=== PATIENT | female | born 1980 | race Hispanic/Latino ===

== ENCOUNTER 2021-04-25 16:21 | Emergency (ER) | payer SELFPAY ==
[2021-04-25 16:47] LABS: #Eosinphils 0.2 thou/uL (0.0-0.7); #Lymphocytes 2.6 thou/uL (1.20-3.40); #Monocytes 0.7 thou/uL (0.11-0.59); #Neutrophils 7.6 thou/uL (1.40-6.50); %Basophils 0.4 % (0.0-1.0); %Eosinophils 1.4 % (0.0-10.0); %Lymphocytes 23.4 % (21.0-51.0); %Monocytes 5.9 % (0.0-10.0); %Neutrophils 68.8 % (42.0-75.0); Hemoglobin 10.5 g/dL (12.0-16.0); Mean Corpuscular HGB CONC 33.1 g/dL (32.0-36.0); Mean Corpuscular Hemoglobin 28.3 pg (27.0-31.0); Mean Corpuscular Volume 85.6 fL (78.0-98.0); Mean Platelet Volume 6.7 fL (7.4-10.4); Platelet Count 349 thou/uL (130-400); RBC Distribution Width 13.4 % (11.5-14.5); Red Blood Cell (RBC) Count 3.72 mill/uL (4.20-5.40)
[2021-04-25 16:54] LABS: BHCG - Serum Negative (NEGATIVE)
[2021-04-25 16:55] LABS: Pregs Control Background? CLEAR/WHITE (CLR/WHITE); Pregs Control Bar Appear? YES (CONTROL BAR)
[2021-04-25 17:08] LABS: ALT (SGPT) 17 U/L (8-55); AST (SGOT) 13 U/L (5-34); Albumin 3.8 g/dL (3.5-5.0); Alkaline Phosphatase 78 U/L (40-110); Anion Gap 12 mmol/L (10-20); BUN (Urea Nitrogen) 15 mg/dL (7.0-18.7); Bilirubin, Total Less than 0.2 mg/dL (0.2-1.2); Calc. Creatinine Clearance 0 mL/min (70-130); Calcium 9.7 mg/dL (7.8-10.44); Carbon Dioxide 25 mmol/L (22-29); Chloride 104 mmol/L (98-107); Globulin 3.5 g/dL (2.4-3.5); Glucose 123 mg/dL (70-105); Lipase 30 U/L (8-78); Potassium 3.7 mmol/L (3.5-5.1); Protein, Total 7.3 g/dL (6.0-8.3); Sodium 137 mmol/L (136-145)
[2021-04-25] MEDS ORDERED: Ondansetron PF 4 MG/2 ML Vial ONE (17:49)
[2021-04-25] MEDS ORDERED: Ketorolac Tromethamine 30 MG/ML VIAL ONE (18:07)
== END 2021-04-25 20:12 | disposition home or self-care (01) ==
LOC: ERS 16:21
DX: R07.89 Other chest pain (principal); D64.9 Anemia, unspecified; Z79.899 Other long term (current) drug therapy
CPT/HCPCS: 36415; 71045; 80053; 83690; 84484; 84703; 85025; 93005; 96374; 96375; J1885; J2405

== ENCOUNTER 2023-04-02 09:47 | Outpatient (CLI) | payer MEDICAID, OTHER ==
[2023-04-02] MEDS ORDERED: Iopamidol-370 76% 500 ML MDV (1 ML CHARGE) ONE (10:14)
== END 2023-04-02 09:48 | disposition home or self-care (01) ==
LOC: RAD 09:47
PROVIDERS: ATTEND Urology
DX: S37.23XD Laceration of bladder, subsequent encounter (principal)
CPT/HCPCS: 51600; 74430